=== PATIENT | male | born 1975 | race American Indian/Alaskan Native ===

== ENCOUNTER 2018-12-13 06:42 | Emergency (ER) | payer OTHER ==
[2018-12-13 06:47] VITALS: BP 135/84
--- NOTE | 2018-12-13 07:40 | Emergency Department Report ---
ED Back Pain/Injury HPI - General Chief Complaint: Back Pain/Injury Stated Complaint: LOWER BACK PAIN Time Seen by Provider: 12/13/18 07:34 Source: patient Limitations: No Limitations - History of Present Illness Initial Comments: low back pain, nonradiating, no injury NO numbness, weakness, bowel/bladder dysfunction NO fever, IVDU, fci steroid use, hx cancer Complaint: back pain -: Gradual, days(s) (3) Similar Symptoms Previously: No Place: home Radiation: none Severity: moderate Severity scale (0 -10): 5 Quality: aching Consistency: constant Improves With: immobilization Worsens With: movement Context: unknown Associated Symptoms: denies other symptoms - Related Data Home Medications Medication Instructions Recorded Confirmed Last Taken glipiZIDE [Glucotrol] 10 mg PO DAILY 09/21/14 09/21/14 Unknown metFORMIN [Glucophage] 500 mg PO BID 09/21/14 09/21/14 Unknown Previous Rx's Medication Instructions Recorded Last Taken Type Triamcinolone Acetonide 15 gm TP BID #60 oint...g. 09/21/14 Unknown Rx [Triamcinolone Acetonide Oint 0.5%] Cyclobenzaprine [Flexeril 10 MG 10 mg PO TID PRN #15 tablet 12/13/18 Unknown Rx TAB] Naproxen [Naprosyn TAB] 500 mg PO BID #20 tablet 12/13/18 Unknown Rx Allergies Allergy/AdvReac Type Severity Reaction Status Date / Time No Known Allergies Allergy Verified 12/13/18 06:46 ED Review of Systems ROS: Stated complaint: LOWER BACK PAIN Other details as noted in HPI Comment: All other systems reviewed and negative Musculoskeletal: as per HPI ED Past Medical Hx Family history: no significant family history ED Back Pain Physical Exam - Exam General: Vital signs noted. No distress. Alert and acting appropriately. Back/Abdomen: Yes Perilumbar Tenderness (lower L spine, midline-->L), Yes Sacroiliac Tenderness (L), No Abdominal Tenderness, No Perithoracic Tenderness, No Flank Tenderness, No Straight Leg Raise Pain Neuro: Yes Normal Sensation, Yes Normal DTR's, Yes Normal Gait, No Motor Weakness ED Course Vital Signs 12/13/18 06:43 Temperature 98.2 F Pulse Rate 83 Respiratory 18 Rate Blood Pressure 135/84 O2 Sat by Pulse 98 Oximetry ED Medical Decision Making - Radiology Data Radiology results: report reviewed normal L spine plain films - Medical Decision Making low back pain no red flags midline ttp so x-ray ordered muscular etiology most likely no concern for epidural abscess/cord compression - Differential Diagnosis lumbar strain, SI pain, sciatica, compression fx Critical care attestation.: If time is entered above; I have spent that time in minutes in the direct care of this critically ill patient, excluding procedure time. ED Disposition Clinical Impression: Low back strain Qualifiers: Encounter type: initial encounter Qualified Code(s): S39.012A - Strain of muscle, fascia and tendon of lower back, initial encounter Disposition: TO HOME OR SELFCARE Is pt being admited?: No Condition: Good Instructions: Muscle Strain (ED) Prescriptions: Cyclobenzaprine [Flexeril 10 MG TAB] 10 mg PO TID PRN #15 tablet PRN Reason: Muscle Spasm Naproxen [Naprosyn TAB] 500 mg PO BID #20 tablet Referrals: [facility] MD LUCIANO [Primary Care Provider] - 3-5 Days MARLYN RAMIRES MD [Staff Physician] - 3-5 Days Time of Disposition: 08:18
--- NOTE | 2018-12-13 08:05 | XRay Report ---
AP AND LATERAL LUMBOSACRAL SPINE: History: Low back pain. The vertebral bodies are well mineralized and normal in alignment and vertebral height with well preserved interspace distances. The visualized portions of the posterior elements are normal. IMPRESSION: Unremarkable lumbar spine films.
== END 2018-12-13 08:29 | disposition home or self-care (01) ==
LOC: ED 06:42
DX: S39.012A Strain of muscle, fascia and tendon of lower back, initial encounter (principal); Z79.899 Other long term (current) drug therapy; X58.XXXA Exposure to other specified factors, initial encounter; Y93.89 Activity, other specified; Y92.89 Other specified places as the place of occurrence of the external cause; Y99.8 Other external cause status
CPT/HCPCS: 72100; 99283

== ENCOUNTER 2018-12-28 08:17 | Emergency (ER) | payer OTHER ==
[2018-12-28 08:23] VITALS: BP 137/99
== END 2018-12-28 10:30 | disposition left against medical advice (07) ==
LOC: ED 08:17
DX: R42 Dizziness and giddiness (principal); Z53.21 Procedure and treatment not carried out due to patient leaving prior to being seen by health care provider
CPT/HCPCS: 82962

== ENCOUNTER 2019-03-31 03:49 | Emergency (ER) | payer OTHER ==
[2019-03-31 03:58] VITALS: BP 125/85
== END 2019-03-31 04:15 | disposition left against medical advice (07) ==
LOC: ED 03:49
DX: R51 Headache (principal); Z53.21 Procedure and treatment not carried out due to patient leaving prior to being seen by health care provider